=== PATIENT | female | born 1990 | race Hispanic/Latino ===

== ENCOUNTER → 2023-11-14 | Emergency (ER) | payer SELFPAY ==
--- OUTSIDE RECORDS SUMMARY | 2023-11-14 01:59 | XMS REPORT | Continuity of Care Document ---
Author Name Unknown Address [address] [place] [address] [address] [place] [address] [facility] Address [address] [facility] [address] [place] [address] Care Team Providers Care Pneumatic Jacketer Name Role Phone Unavailable Unavailable Unavailable Encounters Start Date/Time End Date/Time Encounter Type Admission Type Attending [facility] Emergency Department Facility Care Department Encounter ID Source 2023-03-02 17:36:06 2023-03-02 17:36:06 Outpatient [facility] [id number] Mahad Sam Sahil 2022-11-24 17:35:32 2022-11-24 17:35:32 Outpatient [facility] [id number] Mahad Sam Sahil 2022-11-20 09:05:34 2022-11-20 09:05:34 Outpatient [facility] [id number] Mahad Sam Sahil 2022-11-17 17:21:35 2022-11-17 17:21:35 Outpatient [facility] [id number] Mahad Baxter
--- NOTE | 2023-11-14 03:26 | EDPHYS ---
Physician Documentation [facility] Name: Celena Lynch Age: 33 yrs Sex: Female : 1990 Arrival Date: 11/14/2023 Time: 01:57 Bed 14 Private MD: ED Physician Laura Brothers HPI: 11/14 02:21 This 33 yrs old Female presents to ER via Ambulatory with complaints of Finger Injury. sp3 02:21 33-year-old female with no past medical history presents with left distal middle finger sp3 pain secondary to trauma in her finger getting caught in a refrigerator door. This happened just prior to arrival. Patient has like her nails that were done approximately 20 days ago while in [place]. Patient has erythema and mild bleeding at the nail cuticle particularly on the lateral side. Full range of motion still present. Capillary refill not assessed secondary to lack of being present. Finger pad demonstrates appropriate vascularization. No proximal injury noted. Review of systems otherwise negative.. Historical: - Allergies: 02:20 No Known Allergies; jw7 - Home Meds: 02:20 None [Active]; jw7 - PMHx: 02:20 None; jw7 - PSHx: 02:20 None; jw7 - Immunization history:: Adult Immunizations up to date. - Social history:: Smoking status: Patient denies any tobacco usage or history of. ROS: 02:22 Constitutional: Negative for fever, chills, and weight loss, Eyes: Negative for injury, sp3 pain, redness, and discharge, ENT: Negative for injury, pain, and discharge, Neck: Negative for injury, pain, and swelling, Cardiovascular: Negative for chest pain, palpitations, and edema, Respiratory: Negative for shortness of breath, cough, wheezing, and pleuritic chest pain, Abdomen/GI: Negative for abdominal pain, nausea, vomiting, diarrhea, and constipation, Back: Negative for injury and pain, Neuro: Negative for headache, weakness, numbness, tingling, and seizure, Psych: Negative for depression, anxiety, suicide ideation, homicidal ideation, and hallucinations, Allergy/Immunology: Negative for hives, rash, and allergies, Endocrine: Negative for neck swelling, polydipsia, polyuria, polyphagia, and marked weight changes, 02:22 All other systems are negative, Exam: 02:23 Constitutional: This is a well developed, well nourished patient who is awake, alert, sp3 and in no acute distress. Neck: Trachea midline, no thyromegaly or masses palpated, and no cervical lymphadenopathy. Supple, full range of motion without nuchal rigidity, or vertebral point tenderness. No Meningismus. Chest/axilla: Normal chest wall appearance and motion. Nontender with no deformity. No lesions are appreciated. Cardiovascular: Regular rate and rhythm with a normal S1 and S2. No gallops, murmurs, or rubs. Normal PMI, no JVD. No pulse deficits. Respiratory: Lungs have equal breath sounds bilaterally, clear to auscultation and percussion. No rales, rhonchi or wheezes noted. No increased work of breathing, no retractions or nasal flaring. Neuro: Awake and alert, GCS 15, oriented to person, place, time, and situation. Cranial nerves II-XII grossly intact. Motor strength 5/5 in all extremities. Sensory grossly intact. Cerebellar exam normal. Normal gait. Psych: Awake, alert, with orientation to person, place and time. Behavior, mood, and affect are within normal limits. 02:23 Musculoskeletal/extremity: Left middle finger distal portion of the nailbed demonstrates lateral bleeding without laceration and erythema which may indicate infection which may have been there prior to the injury.. Vital Signs: 02:18 BP 133 / 87; Pulse 107; Resp 17 S; Temp 98.9(O); Pulse Ox 99% on R/A; Weight 88.45 kg; jw7 Height 5 ft. 4 in. ; Pain 9/10; 03:11 BP 107 / 76; Pulse 97; Resp 17 S; Pulse Ox 98% on R/A; jw7 02:18 Body Mass Index 33.29 (88.45 kg, 163 cm) [facility] 02:18 Pain Scale: Adult jw7 MDM: 02:13 Patient medically screened. sp3 02:23 Data reviewed: vital signs, nurses notes, radiologic studies. ED course: Traumatic sp3 versus infectious versus both injury to the left distal middle finger on a lacquer nail. Will assess with x-ray and then discharged on antibiotics with any appropriate immobilization as indicated based on atraumatic assessment of the x-ray.. 03:24 ED course: X-ray demonstrates no fracture or dislocation. We will discharge patient sp3 home on Bactrim to prevent and/or treat any infection.. 11/14 02:18 Order name: Hand Left 3 View XRAY sp3 Administered Medications: No medications were administered Disposition Summary: 11/14/23 03:25 Discharge Ordered Notes: Location: Home sp3 Condition: Stable sp3 Diagnosis - Crush injury to finger left middle, trauma related laceration to left middle sp3 finger, early erythema/cellulitis left middle finger Followup: sp3 - With: Private Physician - When: Upon discharge from the Emergency Department - Reason: Continuance of care Discharge Instructions: - Discharge Summary Sheet sp3 - Crush Injury of the Hand sp3 - Fingertip Infection sp3 Forms: - Medication Reconciliation Form sp3 - Thank You Letter sp3 - Antibiotic Education sp3 - Prescription Opioid Use sp3 - Patient Portal Instructions sp3 - Leadership Thank You Letter sp3 Prescriptions: - Bactrim DS 800-160 mg Oral Tablet - take 1 tablet ORAL route every 12 hours for 7 days; 14 tablet; Refills: 0, sp3 Product Selection Permitted Signatures: Dispatcher [employer] Laura Pham MD MD sp3 Kaylynn Rodriguez RN RN jw7
--- NOTE | 2023-11-14 03:26 | ER ---
Nurse's Notes [facility] Name: Celena Lynch Age: 33 yrs Sex: Female : 1990 Arrival Date: 11/14/2023 Time: 01:57 Bed 14 Private MD: Diagnosis: Crush injury to finger left middle, trauma related laceration to left middle finger, early erythema/cellulitis left middle finger Presentation: 11/14 02:18 Chief complaint: Patient states: "I got my finger stuck in the fridge and it ripped jw7 part of my nail off'. Coronavirus screen: At this time, the client does not indicate any symptoms associated with coronavirus-19. Ebola Screen: No symptoms or risks identified at this time. Initial Sepsis Screen: Does the patient meet any 2 criteria? No. Patient's initial sepsis screen is negative. Does the patient have a suspected source of infection? No. Patient's initial sepsis screen is negative. Risk Assessment: Do you want to hurt yourself or someone else? Patient reports no desire to harm self or others. Onset of symptoms was November 14, 2023. 02:18 Method Of Arrival: Ambulatory jw7 02:18 Acuity: DONNIE 4 jw7 Triage Assessment: 02:20 General: Appears in no apparent distress. comfortable, Behavior is calm, cooperative. jw7 Pain: Complains of pain in left middle fingernail Pain does not radiate. Pain currently is 9 out of 10 on a pain scale. Quality of pain is described as throbbing, pulsating, Pain began suddenly, Is continuous. EENT: No deficits noted. No signs and/or symptoms were reported regarding the EENT system. Neuro: Level of Consciousness is awake, alert, obeys commands, Oriented to person, place, time, situation. Cardiovascular: Capillary refill < 3 seconds Clubbing of nail beds is absent JVD is absent Patient's skin is warm and dry. Respiratory: Airway is patent Trachea midline Respiratory effort is even, unlabored, Respiratory pattern is regular, symmetrical. GI: Abdomen is round non-distended. : No deficits noted. No signs and/or symptoms were reported regarding the genitourinary system. Derm: Skin is intact, is healthy with good turgor, Skin is dry, Skin is normal, Skin temperature is warm. Musculoskeletal: Circulation, motion, and sensation intact. Range of motion: intact in all extremities. Injury Description: Crush injury sustained to left middle fingernail. Historical: - Allergies: 02:20 No Known Allergies; jw7 - Home Meds: 02:20 None [Active]; jw7 - PMHx: 02:20 None; jw7 - PSHx: 02:20 None; jw7 - Immunization history:: Adult Immunizations up to date. - Social history:: Smoking status: Patient denies any tobacco usage or history of. Screenin:22 [facility] ED Fall Risk Assessment (Adult) History of falling in the last 3 months, jw7 including since admission No falls in past 3 months (0 pts) Score/Fall Risk Level 0 - 2 = Low Risk Oriented to surroundings, Maintained a safe environment, Educated pt \\T\\ family on fall prevention, incl call for assistance when getting out of bed. Abuse screen: Denies threats or abuse. Denies injuries from another. Nutritional screening: No deficits noted. Tuberculosis screening: No symptoms or risk factors identified. Assessment: 02:23 General: see triage assessment. jw7 03:11 Reassessment: Patient appears in no apparent distress at this time. Patient and/or jw7 family updated on plan of care and expected duration. Pain level reassessed. Patient is alert, oriented x 3, equal unlabored respirations, skin warm/dry/pink. Vital Signs: 02:18 BP 133 / 87; Pulse 107; Resp 17 S; Temp 98.9(O); Pulse Ox 99% on R/A; Weight 88.45 kg; jw7 Height 5 ft. 4 in. ; Pain 9/10; 03:11 BP 107 / 76; Pulse 97; Resp 17 S; Pulse Ox 98% on R/A; jw7 02:18 Body Mass Index 33.29 (88.45 kg, 163 cm) jw7 02:18 Pain Scale: Adult jw7 ED Course: 01:59 Patient arrived in ED. jj6 02:12 Kaylynn Rodriguez, [employer] is Primary Nurse. jw7 02:13 Laura Brothers MD is Attending Physician. sp3 02:20 Triage completed. jw7 02:22 Patient has correct armband on for positive identification. Bed in low position. Call [facility] light in reach. 02:22 Arm band placed on. jw7 02:38 Hand Left 3 View XRAY In Process Unspecified. EDMS 03:46 No provider procedures requiring assistance completed. Patient did not have IV access jw7 during this emergency room visit. 03:47 Provided Education on: discharge instructions and medication usage. jw7 Administered Medications: No medications were administered Medication: 03:47 VIS not applicable for this client. jw7 Outcome: 03:25 Discharge ordered by . sp3 03:46 Discharged to home ambulatory, jw7 03:46 Condition: stable 03:46 Discharge instructions given to patient, Instructed on discharge instructions, follow up and referral plans. medication usage, Demonstrated understanding of instructions, follow-up care, medications, Prescriptions given X 1, :47 Patient left the ED. jw7 Signatures: Dispatcher [employer] EDMS Laura Brothers MD MD sp3 Latesha Trevino6 Kaylynn Rodriguez RN RN jw7
[2023-11-14 09:04] VITALS: BP 107/76; TEMP 98.9; O2SAT 98
--- NOTE | 2023-11-15 19:45 | RAD REPORT ---
EXAM DESCRIPTION: RAD - Hand Left 3 View - 11/14/2023 2:36 am CLINICAL HISTORY: The patient is 33 years old and is Female; PAIN Bed Name: 14 TECHNIQUE: Frontal, lateral and oblique views of the left hand. COMPARISON: No relevant prior studies available. FINDINGS: BONES/JOINTS: No acute fracture. No suspicious lytic or blastic bone lesions. No subluxa tion or dislocation. SOFT TISSUES: Unremarkable No radiopaque foreign body. IMPRESSION: No acute findings in the left hand. Electronically signed by: Rocky Faria MD 11/14/2023 03:09 AM PIE MAKER Due to temporary technical issues with the PACS/Fluency reporting system, reports are being signed by the in house radiologists without review as a courtesy to insure prompt reporting. The interpreting radiologist is fully responsible for the content of the report.
== END ==
LOC: ER 01:57
DX: S67.193A Crushing injury of left middle finger, initial encounter (principal); W23.0XXA Caught, crushed, jammed, or pinched between moving objects, initial encounter; S61.213A Laceration without foreign body of left middle finger without damage to nail, initial encounter; L03.012 Cellulitis of left finger
CPT/HCPCS: 99283